=== PATIENT | male | born 1950 | race Caucasian/White ===

== ENCOUNTER 2022-02-13 13:54 | Emergency (ER) | payer MEDICARE ==
[2022-02-13 16:19] LABS: HEMOGLOBIN 13.4 gm/dl (14.0-17.5); RED BLOOD COUNT 4.16 M/UL (4.20-5.50); WHITE BLOOD COUNT 7.2 K/UL (4.5-11.0)
[2022-02-13] MEDS ORDERED: CEPHALEXIN500 MG PO (16:25)
[2022-02-13 16:54] LABS: BUN/CREATININE RATIO 12 (0-10)
== END 2022-02-13 16:55 | disposition home or self-care (01) ==
LOC: ER1 13:54
PROVIDERS: Physician Assistant
DX: S50.851A Superficial foreign body of right forearm, initial encounter (principal); I10 Essential (primary) hypertension; W45.8XXA Other foreign body or object entering through skin, initial encounter; Y92.009 Unspecified place in unspecified non-institutional (private) residence as the place of occurrence of the external cause
CPT/HCPCS: 73090; 80053; 85025; 90471; 90715; 96374; 99283; J0690